=== PATIENT | male | born 1990 | race Caucasian/White ===

== ENCOUNTER 2020-01-22 14:24 | Emergency (ER) | payer BC, OTHER ==
[~2020-01-22] VITALS: Ht 180.3 cm; Wt 81.7 kg
[2020-01-22 14:51] LABS: HEMATOCRIT 45.8 % (42.0-52.0); MCHC 32.8 g/dL (28.0-37.0); MCV 100.5 fL (80.0-100.0); RBC 4.55 mil/uL (4.50-6.00); RDW 13.5 % (10.5-14.5); WBC 4.8 thou/uL (4.0-11.0)
[2020-01-22 14:56] LABS: CALCIUM 9.7 mg/dL (8.5-10.1); CREATININE 1.5 mg/dL (0.7-1.3); POTASSIUM 3.9 mmol/L (3.5-5.1)
[2020-01-22 15:45] LABS: AMP/METHAMP POSITIVE (Negative); BARBITURATES Negative (Negative); BENZODIAZEPINES Negative (Negative); COCAINE Negative (Negative); METHADONE Negative (Negative); OPIATES Negative (Negative); PCP Negative (Negative)
[2020-01-22 18:42] VITALS: BP 121/58
== END 2020-01-22 18:35 | disposition home or self-care (01) ==
LOC: ER 14:24
PROVIDERS: Emergency Medicine
DX: F31.9 Bipolar disorder, unspecified (principal)